=== PATIENT | male | born 1945 | race Caucasian/White ===

== ENCOUNTER 2022-07-05 07:47 | Outpatient (CLI) | payer MEDICARE ==
[2022-07-05] MEDS ORDERED: Iopamidol 300 61% 100 ML VIAL FS ONE (08:59)
== END 2022-07-05 07:48 | disposition home or self-care (01) ==
LOC: CSHCT 07:47
PROVIDERS: ATTEND Urology
DX: R31.0 Gross hematuria (principal); K44.9 Diaphragmatic hernia without obstruction or gangrene; N32.89 Other specified disorders of bladder; N28.9 Disorder of kidney and ureter, unspecified; K57.90 Diverticulosis of intestine, part unspecified, without perforation or abscess without bleeding
CPT/HCPCS: 74178; 82565; Q9967